=== PATIENT | male | born 1950 | race Two or more races ===

== ENCOUNTER → 2020-09-08 14:07 | Outpatient (CLI) | payer MEDICARE, SELFPAY ==
[2020-09-08 15:12] LABS: Blood Urea Nitrogen 15 mg/dl (9-20); Estimated Glomerular Filt Rate 67 ml/min (>60); GFR (African American) 81 ML/MIN (>60)
== END ==
PROVIDERS: Visit Provider Otolaryngology
DX: H91.93 Unspecified hearing loss, bilateral (principal); Z01.818 Encounter for other preprocedural examination
CPT/HCPCS: 36415; 82565; 84520

== ENCOUNTER → 2020-09-09 08:20 | Outpatient (CLI) | payer MEDICARE, SELFPAY ==
--- NOTE | 2020-09-09 08:28 | MR_ITS ---
PROCEDURE: MR HEAD/BRAIN WO/W CON CLINICAL INDICATION: TINNITUS RT EAR TINNITUS, HEARING LOSS WORSE IN RIGHT EAR, NO PRIOR. 23ML PROHANCE INJECTED LOT:[id number] EXP:2022 LOT:[id number] EXP:FEB 2022 BUN:15 GFR:1.10 GFR:67 COMPARISON: No exams were available for comparison TECHNIQUE: Routine multiplanar multi echo sequences are performed without gadolinium enhancement. FINDINGS: No midline shift, mass effect, intracranial hemorrhage, or hydrocephalus. Cerebellopontine angle, cerebellum, and brainstem have an unremarkable appearance. The pituitary optic chiasm and corpus callosum have an unremarkable appearance. The craniocervical junction is unremarkable. At C3-C4, there is a bulging disc with canal stenosis and impingement and contour deformity of the cord. This may be better evaluated with MRI of the cervical spine if clinically desired. There is no evidence of acute infarction. No abnormal white matter signal intensity. No enhancing lesions are evident. There is increased T1 signal involving the falx centrally at the frontal parietal region slightly eccentric toward the right and may be related to falx calcification. No mastoid effusion or sinus air-fluid level. IMPRESSION: 1. Negative MRI of the brain without and with contrast enhancement. 2. 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 This is seen on the edge of the sagittal images and may be better evaluated with dedicated MRI of the cervical spine. Dictated by: Karlos Tracey MD 09/10/2020 17:37 Karlos Tracey MD in [place] 09/10/2020 17:37
== END ==
PROVIDERS: PCP Family Medicine; Visit Provider Otolaryngology
DX: H90.3 Sensorineural hearing loss, bilateral (principal); H93.13 Tinnitus, bilateral
CPT/HCPCS: 70553; A9576